=== PATIENT | male | born 1990 | race Caucasian/White ===

== ENCOUNTER → 2021-10-31 08:33 | Outpatient (CLI) | payer OTHER, SELFPAY ==
--- NOTE | 2021-10-31 08:37 | DI.MRI.S_ITS ---
PROCEDURE: MR HEAD/BRAIN WO/W CON INDICATIONS: PHANTOSMIA TECHNIQUE: Noncontrast axial T1 spin echo, axial T2 fast spin echo, sagittal and axial FLAIR, coronal T2 fast spin echo, axial gradient echo, axial diffusion and ADC through the brain. After the administration of contrast, axial and coronal and sagittal 3D VIBE or T1 spin echo with fat saturation through the brain. COMPARISON: None. FINDINGS: Image quality: Excellent. CSF Spaces: Basal cisterns are patent. No extra-axial fluid collections. Ventricles are normal in size and shape. Brain: No midline shift. No intracranial bleeds or masses. No abnormal intracranial enhancement. The brainstem appears normal. Diffusion-weighted images demonstrate no acute ischemic insults. No chronic ischemic insults. Normal intravascular flow voids are present. Skull and face: Calvarial marrow is normal in signal. Orbits appear normal. Sinuses: Bilateral maxillary sinus retention cysts are present. Sinuses and mastoids otherwise appear clear. IMPRESSION: Negative brain MRI. Dictated by: Harish Lam M.D. on 11/02/2021 at 8:18 Approved by: Harish Lam M.D. on 11/02/2021 at 8:20
== END ==
PROVIDERS: PCP Family Medicine; Referring Provider Otolaryngology; Visit Provider Otolaryngology
DX: R44.2 Other hallucinations (principal)
CPT/HCPCS: 70553; A9579

== ENCOUNTER 2022-10-21 14:54 | Outpatient (RCR) | payer OTHER, SELFPAY ==
--- NOTE | 2022-10-21 15:45 | OT.OP.DC ---
Visit Care Team Role Provider Type Ziyad Major PA-C Attending Provider Non-Staff Family Provider Primary Care Provider Referring Provider Address: [address] [place] [address], [id number] Phone: Email: OT Outpatient OT Outpatient Adult Evaluation Start: 10/22/22 11:36 Freq: Status: Active Protocol: Document 10/21/22 15:45 AMS (Rec: 10/22/22 11:52 AMS [id number]) General Information - Adult Visit Information Insurance Information [facility] Setting Treatment Setting Outpatient Care Visit Type Note Type Initial Evaluation Identification Identification Confirmed Yes Identification Confirmed By Self Assessment/Plan Assessment Treatment Assessment Patient is a 31 year-old right hand dominant male referred to outpatient OT secondary to L hand injury. Henrry reported injuring the L hand while sliding into 2nd base (hitting the edge of the base with the ulnar side of his L hand); injury reportedly occurred September 14 and he was seen by his PCP approx 2 wks following injury. He reports wearing a distal UE splint until having x-rays which had no significant findings. He indicated 8 out of 10 on the Pain Assessment Grid relative to location of 5th metacarpal. QuickDASH UE Outcome Measure Score = 38.64; Work Module Score = 0.00; Sports/ Performing Arts Module Score = 100.00. Pain reportedly shoots downward (head --> base of 5th metacarpal) when pressure is applied distally to the shaft of the 5th metacarpal, shifting head dorsally. No signs of swelling noted and/or discoloration. This clinician was unable to palpate inflammation/ tenderness w/ hand positioned in neutral. 5th digit ROM WNL; no discomfort reported w/ resisted 5th digit abd/add/ flex/ext. 88.0# of force w/ L manager medical writing and 95.0# of force w/ R manager medical writing w/ dynamometer II testing . Therapist was unable to consistently exacerbate symptoms w/ weight bearing tasks; was able to execute floor push-ups x 2 without exacerbation of pain/ discomfort but c/o intermittent pain/discomfort w / pushing into table distal to MCP joints. Therapist recommends that patient return to PCP for further diagnostic imaging and be referred to certified hand therapist and/ or UE orthpedic MD specialist. Plan Patient Recommendations Discharge from Occupational Therapy Comment Additional diagnostic imaging; referral to UE orthopedic MD specialist; CHT Functional Wrist/Hand Scan Hand Side Sensory Assessment Sensory Profile2
== END 2022-12-03 10:55 ==
LOC: OT 14:54
PROVIDERS: Absent Provider Physician Assistant; Family Provider Physician Assistant; PCP Physician Assistant; Referring Provider Physician Assistant; Visit Provider Physician Assistant
DX: S69.92XD Unspecified injury of left wrist, hand and finger(s), subsequent encounter (principal)
CPT/HCPCS: 97166